=== PATIENT | female | born 1950 | race Caucasian/White ===

== ENCOUNTER 2016-09-09 10:41 | Inpatient (IN) | payer OTHER ==
[~2016-09-09 10:41] MED LIST: ALEVE220 M4 PO; CENTRUM COMPLE1 EAC1 PO; FLONASE ALLERG9.9 ML; TYLENOL EXTRA500 M1 PO
[2016-09-10 06:27] LABS: BASO % 0.1 % (0-2); HCT-HEMATOCRIT 35.7 % (34.0-49.0); HGB-HEMOGLOBIN 11.2 gm/dl (12.0-15.5); IMMATURE GRANULOCYTES ABSOLUTE 0.01 tho/cmm (0-0.03); IMMATURE GRANULOCYTES PERCENT 0.1 % (0-0.3); LYMPH % 9.4 % (20-45); MCH (MEAN CORPUSCULAR HGB) 27.3 pg (28.0-32.0); MCHC MEAN CORPUSCULAR HGB CONC 31.4 % (32.0-36.0); MCV (MEAN CELL VOLUME) 87.1 fl (82.0-96.0); MEAN PLATELET VOLUME 9.7 cmc (9.4-12.4); MONO % 7.6 % (0-12); MONOCYTE ABSOLUTE COUNT 0.8 tho/cmm (0.0-1.2); NEUTROPHIL ABSOLUTE COUNT 8.7 tho/cmm (1.6-8.0); NEUTROPHIL-AUTOMATED 8.7 tho/cmm (1.6-8.0); NEUTROPHILS % 82.8 % (40-80); PLATELET COUNT 264 tho/cmm (150-450); RED CELL DISTRIBUTION WIDTH 14.5 % (12.4-16.4); WHITE BLOOD COUNT 10.5 tho/cmm (4.0-10.0)
[2016-09-11] MEDS ORDERED: ASPIRIN325 M3 PO (08:33)
[2016-09-11] MEDS ORDERED: ULTRAM50 M1 PO (08:34)
[2016-09-11] MEDS ORDERED: ROXICODONE5 M2 PO (08:35)
[2016-09-11] MEDS ORDERED: MOBIC7.5 M2 PO (08:35)
== END 2016-09-11 14:00 | DRG 470 ==
LOC: SHSC 10:41 → ORE 14:07 → PACU 16:23 → 5EA 17:25
PROVIDERS: ADMIT Orthopaedic Surgery
PROC: 0SRD0J9 Replacement of Left Knee Joint with Synthetic Substitute, Cemented, Open Approach (ICD-10-PCS; principal; 2016-09-09)
DX: M17.12 Unilateral primary osteoarthritis, left knee (principal); Z68.41 Body mass index [BMI] 40.0-44.9, adult; E66.9 Obesity, unspecified
CPT/HCPCS: C1713; C1776; J0171; J0690; J1885; J2270; J2795